=== PATIENT | female | born 1960 | race Caucasian/White ===

== ENCOUNTER → 2016-07-20 | Day surgery (SDC) | payer MEDICARE, MEDICAID ==
[~2016-07-20] MED LIST: BUPIVACAINE HCL PF 0.75% 30 ML VIAL ONE; BUSP5TAB3 PO; DIAZ5 PO; EPINEPHrine HCL (1:1000) 30 MG/30 ML VIAL ONE; LACTATED RINGER'S 1000 ML INJ 1,000 ML ONE; LIDOCAINE 1.5%/EPINEPHrine 1:200,000 PF SOLN 30 ML AMP ONE; MIDAZOLAM HCL 5 MG/ML VIAL (1 ML) ONE; ONDANSETRON HCL 4 MG/2 ML VIAL IV PUSH ONE; PARO10TA PO; PROPOFOL 200 MG/20 ML AMP IV ONE; TRAM50 PO; ceFAZolin 2 GM PREMIX 50 ML ONE
--- NOTE | 2016-07-23 05:41 | MP ---
cc: SUMIT SWAIN M.D. DATE OF SURGERY 07/20/2016 PREOPERATIVE DIAGNOSIS Right shoulder very large rotator cuff tear and impingement syndrome. POSTOPERATIVE DIAGNOSIS Right shoulder very large rotator cuff tear and impingement syndrome. PROCEDURE Right shoulder arthroscopic rotator cuff repair and subacromial decompression. ANESTHETIC Interscalene block and general. SURGEON Sumit Swain MD PAYMENT SPECIALIST SURGEON Joey ALVAREZ ESTIMATED BLOOD LOSS Minimal. COMPLICATIONS None known. INDICATION Lulú Mane is a 56-year-old female with a very large rotator cuff tear and chronic symptomatology associated with her right shoulder. She is indicated for surgical repair. The risks and benefits have been thoroughly discussed and a detailed, informed consent was obtained. PROCEDURE The patient was brought to the operating room. She was placed under general anesthetic. She had been given interscalene block in the preop holding area. She was turned to lateral decubitus position, right shoulder up. The right shoulder was draped and prepped in the usual sterile fashion. IV antibiotics were given. A time-out was completed. The contact lens assistant Joey Prajapati is an advanced registered nurse practitioner and his skill set was medically necessary for the performance of the operation. He assisted with manipulating and holding the arm in multiple different positions, helping with reduction of the rotator cuff repair, helping with complex instrumentation. His skill set was medically necessary for the performance of the operation. We made a posterior portal and a lateral portal at the junction of the middle and anterior third of the acromion. The scope was introduced. The first for a photograph shows the glenohumeral joint which appeared healthy. Looking upward we saw a very large rotator cuff tear. We then came out to the subacromial space and looked down on the tear, again massive tear. We placed a provisional stitch and placed traction on this and then released the superior capsular region to improved mobilization. We then proceeded with [id number] suturing of the rotator interval. We debrided to healthy bleeding bone on the greater tuberosity. We identified anterior acromial spur and performed anterior acromionectomy and subacromial decompression, removing approximately 4 mm of bone anteriorly. We then proceeded with additional [id number] stitch which pulled the displaced rotator cuff/supraspinatus tear anteriorly and closed down the gap. Then we used as a typical SpeedBridge technique with the 4.75 [employer] Arthrex suture anchors with additional suture anteriorly just overlying the biceps tendon. The biceps tendon itself looked very good. Typical crisscross technique with the lateral based anchors and this was brought the cuff into anatomic configuration. The repair looked excellent. We had excellent hemostasis. We closed with absorbable sutures. Steri-Strips applied. Sterile dressing applied. The patient awoken and returned to the recovery room in stable condition. MD TIKA Gibson/LAXMI /1:46 PM /5:34 AM
== END | disposition home or self-care (01) ==
LOC: ESDC 07:52
PROVIDERS: ATTEND Orthopaedic Surgery Sports Medicine
DX: M75.101 Unspecified rotator cuff tear or rupture of right shoulder, not specified as traumatic (principal); M75.41 Impingement syndrome of right shoulder
CPT/HCPCS: 01630; 01991; 29826; 29827; 64417; C1713; J0171; J0690; J2250; J2405; J7120